=== PATIENT | female | born 1980 | race Caucasian/White ===

== ENCOUNTER 2017-01-04 01:41 | Inpatient (IN) | payer OTHER ==
--- NOTE | ~2017-01-04 | PN ---
Unit #: [id number] #: [id number] Patient: ED NAVARRO [id number] [facility] [address] [place] [address] [id number] MR#: [id number] NAME: ED NAVARRO. ROOM: P171 Age: 36 Sex: F Admission Date: 01/04/2017 : 1980 Attending Physician: Fady Kahn M.D. Admitting Physician: Fady Kahn M.D. Primary Care Physician: Primary Care Physician Fern BRAND NOTES DATE 01/05/2017 SUBJECTIVE The patient was admitted on 01/04/2017. At this time, this patient's initial psychiatric assessment could not be completed. Once arriving on the floor, I was notified that the patient has been sent out due to unresolved hypertension. The nurses took the patient's blood pressure and she was noted to have a blood pressure of 170/110. 1 mg Ativan was given a total of 3 times. This was not resolved at that point. The on-call nurse practitioner, Merry Rock, was called and she gave a stat order of clonidine 0.1 now and it was not effective as well. Once EMS arrived on the unit, her blood pressure was reassessed and it was still noted to be 182/110. So, she was sent out for medical clearance at that time. Dictated by... Sury Swartz APRN for Josselin Chapman/juan TD: 01/06/2017 17:34 JOB #: [id number] RNEATO BRAND NOTES X SURY SWARTZ NOTE
--- NOTE | ~2017-01-04 | PN ---
Unit #: [id number] #: [id number] Patient: ED NAVARRO [id number] [facility] [address] [place] [address] [id number] I MR#: [id number] NAME: ED NAVARRO. ROOM: P171 Age: 36 Sex: F Admission Date: 01/04/2017 : 1980 Attending Physician: Fady Kahn M.D. Admitting Physician: Fady Kahn M.D. Primary Care Physician: Primary Care Physician Fern GROSS PROGRESS NOTES DATE 01/06/2017 DISCUSSION The patient is abed resting comfortably today. Her detox continues uneventfully. Dictated by... Fady Kahn M.D. CB/rufus TD: 01/07/2017 00:42 JOB #: [id number] RENATO PROGRESS NOTES X Fady Kahn MD PROGRESS NOTE
--- NOTE | ~2017-01-04 | DS ---
Unit #: [id number] #: [id number] Patient: ED NAVARRO [id number] [place] [address] [id number] I MR#: [id number] NAME: ED NAVARRO. ROOM: 71 Age: 36 Sex: F Admission Date: 01/04/2017 : 1980 Discharge Date: 01/07/2017 Attending Physician: Fady Kahn M.D. Primary Care Physician: Primary Care Physician No DISCHARGE SUMMARY REASON FOR ADMISSION The patient is a 28-year-old white female, admitted for alcohol detox. HOSPITAL COURSE The patient was admitted to the [facility] unit and placed on routine detoxification protocol for alcohol. She was continued on Celexa 20 mg daily and was begun on Neurontin 900 mg at h.s. p.r.n. insomnia. Norvasc 5 mg once daily was added for sleep, and the patient was continued on previously prescribed Protonix and Glucophage. By 01/07/2017, the patient was in bright spirits and denied any symptoms of withdrawal. She was agreeable with the plan for followup in the chemical dependency intensive outpatient program provided by this facility and discharge was ordered. FINAL DIAGNOSES Alcohol use disorder, diabetes mellitus, hypertension, and gastroesophageal reflux disease. DISPOSITION ON DISCHARGE The patient is discharged on the following medications; Norvasc 5 mg daily for hypertension, Glucophage 1000 mg b.i.d. before meals for diabetic management, Protonix 40 mg daily for GERD, Celexa 20 mg daily for depression, Neurontin 900 mg at bedtime p.r.n. insomnia. DISCHARGE INSTRUCTIONS No dietary or physical restrictions were placed upon the patient at the time of discharge. FOLLOWUP Followup will take place through the auspices of chemical dependency intensive outpatient program provided by this facility. PROGNOSIS The patient's prognosis is considered good. Dictated by... Fady Kahn M.D. CB/juan TD: 01/08/2017 04:08 JOB #: [id number] Unit #: [id number] #: [id number] Patient: ED NAVARRO DISCHARGE SUMMARY X Fady Kahn MD X DISCHARGE SUMMARY
--- NOTE | ~2017-01-04 | PA ---
Unit #: [id number] #: [id number] Patient: ED NAVARRO [id number] [place] [address] [id number] I MR#: [id number] NAME: ED NAVARRO. ROOM: P171 Age: 36 Sex: F Admission Date: 01/04/2017 : 1980 Date of Assessment: 01/05/2017 Attending Physician: Fady Kahn M.D. Admitting Physician: Fady Kahn M.D. Primary Care Physician: Primary Care Physician No PSYCHIATRIC ASSESSMENT IDENTIFYING INFORMATION The patient is a 36-year-old white female admitted to the [facility] for alcohol detox. INFORMANT(S) The patient, reliability is good. CHIEF COMPLAINT "I'm a drunk" HISTORY OF PRESENT ILLNESS The patient is a 36-year-old white female who reports use of about two pints of hard liquor on a daily basis. She denies abuse of other psychoactive substances. She had come to this facility citing displeasure with her ongoing living situation. On admission the patient's blood pressure was elevated at 175/118 and her pulse elevated at 109. Her CIWA score was at 20. The patient reports that she is presently unemployed and lives with her mother. The patient denies current suicidal or homicidal ideation. She has reported loss of energy and feelings of hopeless related to her frequent alcohol use. She had had some suicidal thoughts prior to coming to the hospital stating wish to stab herself using a knife but is currently denying any suicidal ideation. PAST PSYCHIATRIC HISTORY The patient reports a history of previous treatment at [facility] for her alcohol abuse. PAST MEDICAL HISTORY Significant for history of elevated blood pressure. MEDICATIONS The patient has just been started on Norvasc. ALLERGIES None reported. FAMILY HISTORY Noncontributory. SOCIAL HISTORY The patient lives with her mother. She completed high school. She reports substance use as noted previously and is a smoker. MENTAL STATUS EXAMINATION Unit #: [id number] #: [id number] Patient: ED NAVARRO At this time reveals the patient to be an obese disheveled white female appearing her stated age. She is in no apparent physical distress at the time of examination. She is awake, alert, and oriented in all spheres. Her mood is dysphoric. Her affect constricted. Speech is generally relevant and coherent. There are no gross deficits in memory or cognition noted. Intelligence is judged to be in the average range based on fund of knowledge. The patient is cooperative throughout the interview. She is currently denying suicidal or homicidal ideation or psychotic features. Judgment and insight appear to be intact. ASSETS AND LIABILITIES ASSETS: Motivation for change. LIABILITIES: Lack of resources. ADMITTING DIAGNOSES Alcohol use disorder, hypertension. PSYCHIATRIC PLAN/TREATMENT GOALS The patient remains hospitalized for safety and stabilization. Routine detoxification protocol for alcohol has been initiated. (1) has been initiated by the medical team. ESTIMATED LENGTH OF STAY Three to five days with followup to take place through the auspices of community mental resources. Dictated by... Fady Kahn M.D. SAVANNA/rufus TD: 01/05/2017 22:26 JOB #: [id number] PSYCHIATRIC ASSESSMENT X Fady Kahn MD X PSYCHIATRIC ASSESSMENT
--- NOTE | ~2017-01-04 | CO ---
Unit #: [id number] #: [id number] Patient: ED NAVARRO [id number] [facility] [address] [place] [address] [id number] MR#: [id number] NAME: ED NAVARRO. ROOM: P171 Age: 36 Sex: F Admission Date: 01/04/2017 : 1980 Attending Physician: Fady Kahn M.D. Primary Care Physician: Primary Care Physician No Consultation Date: 01/05/2017 CONSULTATION REPORT Ordering provider is Dr. Kahn. REASON FOR CONSULTATION High blood pressure. SUBJECTIVE The patient reports that she has been told she has high blood pressure, but has never been treated for before. She denies any headache, chest pain, or shortness of breath. She denies any symptoms at this time. Her blood pressures have been anywhere from 160/88 to 175/118. OBJECTIVE Her examination was unremarkable. ASSESSMENT High blood pressure. PLAN Plan is to start the patient on Norvasc and continue to monitor. Dictated by... Marilyn Sorto A.P.R.N. for Josselin Soriano/juan TD: 01/06/2017 17:48 JOB #: [id number] CONSULTATION REPORT X MARILYN SORTO APRN CONSULTATION REPORT
[~2017-01-04 01:41] MED LIST: CELEXA20 M1 PO; KEFLEX500 M1 PO; METFORMIN HCL1000 M1 PO; NEURONTIN PO; ORTHO-NOVUM1 TAB PO; PANTOPRAZOLE SO40 MG PO; PRILOSEC PO; PRIMATENE MIST
[2017-01-04 12:38] LABS: URINE APPEARANCE CLEAR; URINE BILIRUBIN NEG (NEG); URINE BLOOD NEG (NEG); URINE COLOR YELLOW; URINE GLUCOSE 500 MG/DL (NEG); URINE KETONE NEG (NEG); URINE LEUKOCYTE ESTERASE TRACE (NEG); URINE NITRATE NEG (NEG); URINE PH 8.5 (5-8); URINE PROTEIN TRACE (NEG); URINE SPECIFIC GRAVITY 1.022 (1.003-1.035); URINE UROBILINOGEN 0.2 MG/DL (NEG)
[2017-01-04 12:41] LABS: URBCS1 AUWI 0-2 /[HPF] (0-2); URINE BACTERIA AUWI 2+ (NEGATIVE); URINE SQUAMOUS EPITHELIAL CELL MOD /[HPF]
[2017-01-04 13:21] LABS: AMPHETAMINE NEG (NEG); BARBITURATES NEG (NEG); BENZODIAZEPINES NEG (NEG); COCAINE NEG (NEG); MARIJUANA NEG (NEG); OPIATES NEG (NEG); TRICYCLIC ANTIDEPRESSANTS NEG (NEG); U METHADONE NEG (NEG)
[2017-01-05 12:41] LABS: EOSINOPHIL# 0.1 X10e3 (0-0.7); EOSINOPHIL% 2.6 % (0.0-7.0); HEMOGLOBIN 11.9 gm/dL (12.0-16.0); LYMPHOCYTE# 1.3 X10e3 (1.0-3.5); LYMPHOCYTE% 39.7 % (17.0-45.0); MEAN CELL VOLUME 77.7 FL (83-96); MEAN CORPUSCULAR HEMOGLOBIN 24.4 PG (28-34); MEAN CORPUSCULAR HGB CONC 31.4 g/dL (30-36); MEAN PLATELET VOLUME 7.7 FL (6.5-11.5); MONOCYTE# 0.2 X10e3 (0-1.0); MONOCYTE% 6.9 % (3.0-12.0); NEUTROPHIL# 1.7 X10e3 (1.5-7.1); NEUTROPHIL% 49.8 % (40-75); PLATELET COUNT 113 X10e3 (140-420); RED BLOOD COUNT 4.89 X10e (3.90-5.30); WHITE BLOOD COUNT 3.4 X10e3 (4.0-10.5)
[2017-01-05 12:42] LABS: DIFF IND NO
[2017-01-05 13:19] LABS: ALBUMIN SERUM 3.2 g/dL (3.5-5.0); ALKALINE PHOSPHATASE 106 U/L (32-92); ALT (SGPT) 16 U/L (10-40); AST (SGOT) 18 U/L (10-42); BILIRUBIN,TOTAL 1.5 mg/dL (0.2-2.0); BLOOD UREA NITROGEN 9 mg/dL (9-23); CALCIUM SERUM 8.3 mg/dL (8.4-10.2); CARBON DIOXIDE 25 mmol/L (22-31); CHLORIDE 101 mmol/L (100-111); CREATININE SERUM 0.6 mg/dL (0.6-1.4); GLOM FILT RATE Estimated ABOVE60 mL/min (>60); GLUCOSE FASTING 127 mg/dL (70-110); POTASSIUM 3.9 mmol/L (3.5-5.1); PROTEIN TOTAL SERUM 6.5 g/dL (6.0-8.3); SODIUM 133 mmol/L (135-145)
[2017-01-05 13:20] LABS: THYROID STIMULATING HORMONE 2.05 uIU/ml (0.34-5.60)
[2017-01-05 13:27] LABS: FREE THYROXIN (T4) 0.7 ng/dL (0.58-1.64)
== END 2017-01-07 16:05 | disposition home or self-care (01) | DRG 897 ==
LOC: P1E 01:41
PROVIDERS: Specialist
DX: F10.20 Alcohol dependence, uncomplicated (principal); I10 Essential (primary) hypertension; E11.9 Type 2 diabetes mellitus without complications; K21.9 Gastro-esophageal reflux disease without esophagitis
CPT/HCPCS: 80053; 80307; 81003; 82947; 84439; 84443; 84703; 85025; 86592

== ENCOUNTER 2017-04-01 23:00 | Inpatient (IN) | payer OTHER ==
--- NOTE | ~2017-04-01 | PN ---
Unit #: [id number] #: [id number] Patient: ED NAVARRO [id number] [facility] [address] [place] [address] [id number] I MR#: [id number] NAME: ED NAVARRO. ROOM: [facility] Age: 36 Sex: F Admission Date: 04/02/2017 : 1980 Attending Physician: Fady Kahn M.D. Admitting Physician: Fady Kahn M.D. Primary Care Physician: Primary Care Physician Fern GROSS PROGRESS NOTES DATE 04/03/2017 DISCUSSION The patient is experiencing significant symptoms of alcohol withdrawal and is noted to be in significant discomfort today. We continue her current treatment plan, and I have encouraged her to increase participation within the therapeutic milieu. Dictated by... Fady Kahn M.D. CB/tania TD: 04/04/2017 07:30 JOB #: [id number] RENATO BRAND NOTES Page 1 of 1 X Fady Kahn MD X PROGRESS NOTE
--- NOTE | ~2017-04-01 | PA ---
Unit #: [id number] #: [id number] Patient: ED NAVARRO [id number] [place] [address] [id number] MR#: [id number] NAME: ED NAVARRO. ROOM: [facility] Age: 36 Sex: F Admission Date: 04/02/2017 : 1980 Date of Assessment: 04/02/2017 Attending Physician: Fady Kahn M.D. Admitting Physician: Fady Kahn M.D. Primary Care Physician: Primary Care Physician No PSYCHIATRIC ASSESSMENT IDENTIFYING INFORMATION The patient is a 36-year-old white female admitted to the [address] [place] [address] for alcohol detox. CHIEF COMPLAINT "Drinking too much." INFORMANT(S) Patient, reliability is good. HISTORY OF PRESENT ILLNESS The patient is a 36-year-old white female who was admitted to the [address] [place] [address] with increasing alcohol use. The patient reports that she is drinking about 2 pints of hard liquor on a daily basis. The patient reports no abuse of other psychoactive substances. On admission, the patient's blood alcohol was 0.213, her pulse 107, and her CIWA score 16. The patient reports previous chemical dependence treatment at [facility] approximately 1 year ago. She denies current suicidal or homicidal ideation and denies recent changes in sleep or appetite. The patient has a history of high blood pressure and diabetes as well as asthma. She had previously worked at [employer]. She reports that the most prominent stress in her life is living with her mother with whom she does not get along and whom she accuses of pill addiction. PAST PSYCHIATRIC HISTORY As above. PAST MEDICAL HISTORY Significant for a history of diabetes mellitus. MEDICATIONS 1. Citalopram. 2. Gabapentin. 3. Protonix. 4. Metformin. ALLERGIES None reported. FAMILY HISTORY The patient alleges that her mother is addicted to opioids. SOCIAL HISTORY Unit #: [id number] #: [id number] Patient: ED NAVARRO The patient lives with her mother. She is and has most recently worked at [employer]. She reports alcohol use as noted previously and is a smoker. MENTAL STATUS EXAMINATION Examination at this time reveals the patient to be a well-developed well-nourished somewhat disheveled white female appearing her stated age. Of note is extremely poor dentition. The patient is awake, alert, and oriented in all spheres. Her mood is dysphoric, her affect constricted. Speech is generally well-coherent. There are no gross deficits in memory or cognition noted. Intelligence is judged to be in the average range based on fund of knowledge. The patient is cooperative throughout the interview. She is currently endorsing no suicidal or homicidal ideation or psychotic features. Judgment and insight appear to be intact. ASSETS AND LIABILITIES The patient's assets: Motivation for change. Liabilities: Lack of resources. DIAGNOSTIC IMPRESSION 1. Alcohol use disorder. 2. Dysthymic disorder. 3. Gastroesophageal reflux disease. 4. Diabetes mellitus. 5. Asthma by history. TREATMENT PLAN The patient remains hospitalized for safety and stabilization. Routine detoxification protocol has been initiated, and we will reinitiate the patient's previous medications including gabapentin, Celexa, Protonix, and metformin. ESTIMATED LENGTH OF STAY 3 to 5 days. The followup will take place through the auspices of community mental health resources. Dictated by... Fady Kahn M.D. Carrie TD: 04/02/2017 14:53 JOB #: [id number] PSYCHIATRIC ASSESSMENT Page 1 of 1 X Fady Kahn MD X PSYCHIATRIC ASSESSMENT
--- NOTE | ~2017-04-01 | HP ---
Unit #: [id number] #: [id number] Patient: HARINI NAVARRO [id number] [place] [address] [id number] MR#: [id number] NAME: HARINI NAVARRO. ROOM: [facility] Age: 36 Sex: F Admission Date: 04/02/2017 : 1980 Attending Physician: Fady Kahn M.D. Admitting Physician: Fady Kahn M.D. Primary Care Physician: Primary Care Physician No HISTORY AND PHYSICAL HISTORY OF PRESENT ILLNESS Harini is a 36 year old admitted to [facility] because of her continued abuse of alcohol. She has had other admissions to this facility. PAST MEDICAL HISTORY 1. Long history of alcohol abuse. 2. Obesity. 3. High blood pressure. 4. History of gestational diabetes. 5. Poor dental hygiene. PAST SURGICAL HISTORY 1. x2. 2. Breast reduction. ALLERGIES No known drug allergies. SOCIAL HISTORY Smokes 1 pack per day. Drinks at least a pint of liquor on a daily basis and denies illicit drug use. FAMILY HISTORY Medically noncontributory. REVIEW OF SYSTEMS CONSTITUTIONAL: No fever or chills. HEENT: Denies any sore throat, ear pain or runny nose. CARDIOVASCULAR: Denies chest pain, irregular heart rhythm or palpitations. CHEST: Denies shortness of breath or cough. No hemoptysis. GASTROINTESTINAL: Denies nausea, vomiting, diarrhea or chronic constipation. ENDOCRINE: Denies history of increased thirst or urination. No recent significant weight loss or gain. GENITOURINARY: Denies dysuria, frequency, or hematuria. SKIN: Denies any rashes. HEMATOLOGIC: Denies history of increased bleeding or bruising. MUSCULOSKELETAL: Denies any hot, swollen joints. No generalized muscle pain. NEUROLOGIC: Denies problems with vision or speech. No frequent, severe headaches. No numbness, tingling or weakness in any extremities. Denies loss of bladder or bowel control. Unit #: [id number] #: [id number] Patient: HARINI NAVARRO CURRENT MEDICATIONS 1. Detox protocol. 2. Protonix 40 mg daily. 3. Neurontin 900 mg q.h.s. 4. Glucophage 500 mg b.i.d. 5. Detox protocol. PHYSICAL EXAMINATION GENERAL: Alert, well-nourished, in no apparent distress. VITAL SIGNS: Blood pressure 136/80, heart rate 80, respirations 16, temperature 98.6. WEIGHT: 150. HEIGHT: 5 feet 1 inch. SKIN: Warm and dry without rash or lesion. HEENT: Normocephalic. TMs not viewed. Oral and nasal passages clear. Conjunctivae clear. PERRLA. EOMs intact. NECK: Supple without lymphadenopathy or thyromegaly. HEART: Regular rate and rhythm without murmur. LUNGS: Clear. ABDOMEN: Soft, nontender. : Not done. EXTREMITIES: No evidence of cyanosis, clubbing or edema. Moves all without focal deficit. NEUROLOGICAL: Grossly within normal limits. Cranial Nerves: II: Visual son are intact. III, IV AND : Extraocular movements are intact. Pupils are equal, round and reactive to light. V: Facial sensation is grossly normal. VII: Facial movements and expression are normal. VIII: Auditory acuity grossly intact. IX, X: Uvula is midline. Phonation is normal. XI: Patient shrugs shoulders and turns head normally. XII: Tongue protrudes in the midline. Sensory and Motor Function: Sensory and motor sensation is grossly normal. Motor: moves all extremities well. Coordination: Gait is normal. Deep Tendon Reflexes: Intact. IMPRESSION Psychiatric admission. RECOMMENDATIONS PSYCHIATRIC: Per psychiatrist. MEDICAL: See no contraindications to participate in facility's activities. MEDICAL PROGNOSIS Good. MEDICAL CONDITION Stable. Dictated by... Radha Jose P.A.-C. for Josselin Soriano/jayne Unit #: [id number] #: [id number] Patient: HARINI NAVARRO TD: 04/02/2017 21:32 JOB #: [id number] HISTORY AND PHYSICAL Page 1 of 1 X Radha Jose HISTORY AND PHYSICAL
--- NOTE | ~2017-04-01 | DS ---
Unit #: [id number] #: [id number] Patient: ED NAVARRO [id number] [facility] [address] [place] [address] [id number] MR#: [id number] NAME: ED NAVARRO. ROOM: [facility] Age: 36 Sex: F Admission Date: 04/02/2017 : 1980 Discharge Date: 04/04/2017 Attending Physician: Fady Kahn M.D. Primary Care Physician: Primary Care Physician No DISCHARGE SUMMARY REASON FOR ADMISSION The patient is a 36-year-old white female, admitted for alcohol detox. HOSPITAL COURSE The patient was admitted to the [address] [place] [address] unit and placed on suicide precautions. Her stay in the hospital was a brief and uneventful one. Her detox went smoothly and by 04/04/2017, the patient requested discharge from the hospital and was so ordered. FINAL DIAGNOSES Alcohol use disorder, diabetes mellitus, gastroesophageal reflux disease. DISPOSITION AND DISCHARGE INSTRUCTIONS The patient is discharged on the following medications; Neurontin 900 mg at bedtime for insomnia, Klor-Con M20 one tablet daily for potassium supplementation, Protonix 40 mg daily for GERD, Glucophage 1000 mg b.i.d. before meals for diabetic management. DISCHARGE INSTRUCTIONS No dietary or physical restrictions were placed on the patient at the time of discharge. FOLLOWUP Followup will take place through the auspices of the chemical dependency intensive outpatient program provided by this facility. PROGNOSIS The patient's prognosis is considered fair. Dictated by... Fady Kahn M.D. CB/nessal TD: 04/05/2017 04:56 JOB #: [id number] Unit #: [id number] #: [id number] Patient: ED NAVARRO DISCHARGE SUMMARY Page 1 of 1 X Fady Kahn MD X DISCHARGE SUMMARY
[2017-04-02 09:51] LABS: BASOPHIL# 0.1 X10e3 (0-0.3); BASOPHIL% 1.5 % (0-2.5); EOSINOPHIL# 0.1 X10e3 (0-0.7); EOSINOPHIL% 2.4 % (0.0-7.0); HEMATOCRIT 40.4 % (35.0-45.0); HEMOGLOBIN 12.7 gm/dL (12.0-16.0); LYMPHOCYTE# 2.1 X10e3 (1.0-3.5); LYMPHOCYTE% 39.3 % (17.0-45.0); MEAN CELL VOLUME 77.6 FL (83-96); MEAN CORPUSCULAR HEMOGLOBIN 24.4 PG (28-34); MEAN CORPUSCULAR HGB CONC 31.5 g/dL (30-36); MEAN PLATELET VOLUME 7.6 FL (6.5-11.5); MONOCYTE# 0.4 X10e3 (0-1.0); NEUTROPHIL# 2.7 X10e3 (1.5-7.1); NEUTROPHIL% 49.8 % (40-75); PLATELET COUNT 212 X10e3 (140-420); RED CELL DISTRIBUTION WIDTH 18.5 % (11.0-15.5); WHITE BLOOD COUNT 5.4 X10e3 (4.0-10.5)
[2017-04-02 10:13] LABS: DIFF IND NO
[2017-04-02 10:41] LABS: ALBUMIN SERUM 3.5 g/dL (3.5-5.0); BILIRUBIN,TOTAL 1.3 mg/dL (0.2-2.0); CALCIUM SERUM 8.1 mg/dL (8.4-10.2); CREATININE SERUM 0.4 mg/dL (0.6-1.4); GLOM FILT RATE Estimated 132.2 mL/min (>60); PROTEIN TOTAL SERUM 6.5 g/dL (6.0-8.3)
[2017-04-03 11:46] LABS: AMPHETAMINE NEG (NEG); BARBITURATES NEG (NEG); BENZODIAZEPINES POS (NEG); COCAINE NEG (NEG); MARIJUANA NEG (NEG); OPIATES NEG (NEG); TRICYCLIC ANTIDEPRESSANTS NEG (NEG); U METHADONE NEG (NEG)
== END 2017-04-04 16:30 | disposition home or self-care (01) | DRG 897 ==
LOC: P1E 04-02 03:07
PROVIDERS: Specialist
DX: F10.10 Alcohol abuse, uncomplicated (principal); E11.9 Type 2 diabetes mellitus without complications; F34.1 Dysthymic disorder; E66.9 Obesity, unspecified; F17.210 Nicotine dependence, cigarettes, uncomplicated; K21.9 Gastro-esophageal reflux disease without esophagitis; J45.909 Unspecified asthma, uncomplicated; Z81.3 Family history of other psychoactive substance abuse and dependence
CPT/HCPCS: 80053; 80307; 82947; 84703; 85025; 86592